=== PATIENT | female | born 1990 | race Caucasian/White ===

== ENCOUNTER 2019-01-27 10:03 | Emergency (ER) | payer SELFPAY ==
--- NOTE | 2019-01-27 10:35 | ED Physician Documentation ---
Abdominal Pain - HISTORIAN Historian: patient - HPI Stated Complaint: Nausea/Vomitting Chief Complaint: Nausea,Vomiting,Diarrhea Onset: days ago (2) Duration: constant Timing: still present Context: denies: out of country travel, bad food, recent trauma Severity: mild Quality: other (burning in mid abdomen just prior to vomiting ) Associated Symptoms: nausea, vomiting, loss of appetite. denies: coffee ground emesis, bloody emesis, diarrhea, chest pain, back pain Exacerbated by: nothing Relieved by: nothing Further Comments: yes (She reports this started 3 days ago - she just stopped a normal period three days ago. She reports the nasuea and vomiting comes directly after a "full bubbly pain in middle of my belly comes" She reports the bubbling goes away after the vomiting episode. She has had 10+ episodes of vomiting today. she has tried oral intake and OTC meds with no relief. Denies any significant abdominal pain. No fever. No sick contacts. Denies any urinary issues.) - ROS CONST: no problems GI/: none MS/SKIN/LYMPH: none NEURO/PSYCH: none - SOCIAL HX Smoking History: cigarettes Alcohol Use: none Drug Use: none - FAMILY HX Family History: none - PAST HX Past History: none Other History: none Immunizations: UTD Allergies/Adverse Reactions: Allergies Allergy/AdvReac Type Severity Reaction Status Date / Time No Known Allergies Allergy Verified 01/27/19 10:28 - VITAL SIGNS Vital Signs: Vital Signs Temp Pulse Resp BP Pulse Ox 97.4 F L 75 16 142/98 99 01/27/19 10:05 01/27/19 12:27 01/27/19 12:27 01/27/19 12:27 01/27/19 12:27 - REVIEWED ASSESSMENTS Nursing Assessment Reviewed: Yes Vitals Reviewed: Yes Progress - Progress Progress: 1115: Myself attempted IV start x 1 - left arm with more than 15 old bruises and IV tracks. She refuses any further IV sticks DG 1145: Abigail Weekly [employer] attempt x 1 - Pt refuses any further IV attempts and wishes to go home DG ED Results Lab/Radiology - Orders Orders: ED Orders Category Date Time Status Place IV Lock 1T Care 01/27/19 10:43 Active 0.9 % Sodium Chloride [Normal Saline] 1,000 ml Med 01/27/19 10:43 Discontinued IV NOW Ondansetron HCl Rapdis [Zofran Odt] Med 01/27/19 11:14 Discontinued 4 mg PO NOW ONE Ondansetron HCl/Pf [Zofran] Med 01/27/19 10:43 Discontinued 4 mg IVP NOW ONE Abdominal Pain Physical Exam - Physical Exam General Appearance: no acute distress, alert EENT: eye inspection normal, ENT inspection normal, pharynx normal, no signs of dehydration NECK: normal inspection RESPIRATORY: no resp distress, chest non-tender, breath sounds normal CVS: reg rate & rhythm, heart sounds normal, equal pulses, no murmur ABDOMEN: soft, normal bowel sounds, no distension, tenderness (mild mid abdominal pain with palpation. ). No: McBurney's point tenderne, rebound BACK: normal inspection, no CVA tenderness SKIN: warm/dry, other (bilateral arm bruises and several scars on AC area (L) ) NEURO: oriented X3 Vital Signs: Vital Signs Temp Pulse Resp BP Pulse Ox 97.4 F L 75 16 142/98 99 01/27/19 10:05 01/27/19 12:27 01/27/19 12:27 01/27/19 12:27 01/27/19 12:27 Discharge Clincal Impression: Nausea & vomiting Qualifiers: Vomiting type: unspecified Vomiting Intractability: unspecified Qualified Code(s): R11.2 - Nausea with vomiting, unspecified Referrals: Primary Doctor,No [Primary Care Provider] - 2 Days Comments: 1. Increase fluids 2. CLEAR liquids advance diet as tolerated 3. Zofran 4mg take 1 by mouth every 8 hours as needed for nausea 4. Return to ER for any concerns Condition: Stable Disposition: 07 AGAINST MEDICAL ADVICE Decision to Admit: NO Date of Decison to Admit: 01/27/19 Decision Time: 12:02
[2019-01-27] MEDS: ONDANSETRON HCL/PF 4 MG/ 2ML VIAL IVP ONE (12:03)
[2019-01-27] MEDS: ONDANSETRON HCL 4 MG TAB.RAPDIS PO ONE (12:03)
[2019-01-27] MEDS: 0.9 % SODIUM CHLORIDE 1,000 ML IV ONE (12:04)
[2019-01-27 12:30] VITALS: BP 142/98
== END 2019-01-27 12:29 | disposition left against medical advice (07) ==
LOC: ED 10:03
DX: R11.2 Nausea with vomiting, unspecified (principal)
CPT/HCPCS: 99283; A9270; S1016